=== PATIENT | female | born 1990 | race Hispanic/Latino ===

== ENCOUNTER 2021-10-25 10:31 | Emergency (ER) | payer BC, MEDICAID ==
[~2021-10-25] VITALS: Ht 165.1 cm; Wt 81.6 kg
[2021-10-25 10:32] VITALS: BP 115/82
[2021-10-25] MEDS ORDERED: AMOX500C2 PO (11:53)
[2021-10-25] MEDS ORDERED: IBUP-2070 PO (11:53)
== END 2021-10-25 12:06 | disposition home or self-care (01) ==
LOC: EDH 10:31
DX: J03.90 Acute tonsillitis, unspecified (principal); Z20.822 Contact with and (suspected) exposure to COVID-19
CPT/HCPCS: 87635; 87804 ×2; 87880; 99283; C9803

== ENCOUNTER 2022-01-16 10:32 | Emergency (ER) | payer BC ==
[~2022-01-16] VITALS: Ht 165.1 cm; Wt 81.2 kg
[~2022-01-16 10:32] MED LIST: AMOX500C2 PO; IBUP-2070 PO
[2022-01-16] MEDS ORDERED: CEFTRIAXONE 1G VIAL IM ONE (12:30)
[2022-01-16] MEDS ORDERED: NEOMYCIN/POLYMYXIN/HC OTIC SUSP 10ML BOTTLE AS SCH (12:30)
[2022-01-16] MEDS ORDERED: ACETAMINOPHEN WITH CODEINE 1 TAB TAB PO ONE (12:30)
[2022-01-16] MEDS ORDERED: D-ME1POW16 PO (12:35)
[2022-01-16] MEDS ORDERED: ACET-2247 PO (12:35)
[2022-01-16] MEDS ORDERED: AMOX1TAB16 PO (12:35)
[2022-01-16 13:33] VITALS: BP 136/92
== END 2022-01-16 13:39 | disposition home or self-care (01) ==
LOC: EDH 10:32
DX: J06.9 Acute upper respiratory infection, unspecified (principal); R05.9 Cough, unspecified; H66.92 Otitis media, unspecified, left ear; H61.21 Impacted cerumen, right ear; Z20.822 Contact with and (suspected) exposure to COVID-19; Z79.899 Other long term (current) drug therapy
CPT/HCPCS: 99284; 87635; 87804 ×2; 96372; C9803; J0696